=== PATIENT | female | born 1935 | race Caucasian/White ===

== ENCOUNTER 2016-09-09 09:38 | Emergency (ER) | payer OTHER ==
[~2016-09-09] VITALS: Wt 77.3 kg
[~2016-09-09 09:38] MED LIST: AMLO5TAB4 PO; CAPE500T11 PO; HYD25 PO; HYDR-902 PO; MECL12.574 PO; METO-448 PO; ONDA4TAB14 PO; SIMV20TA PO
[2016-09-09] MEDS ORDERED: IBUPROFEN 200 MG TAB PO ONE (11:00)
[2016-09-09] MEDS ORDERED: HYDROCODONE/APAP (5/325) TAB PO ONE (11:00)
--- NOTE | 2016-09-09 11:14 | RADRPT ---
PROCEDURE: US DVT. CLINICAL INDICATION: Left lower extremity pain. TECHNIQUE: Multiple longitudinal and transverse images of the left lower extremity veins were obta ined with edmonds scale and color Doppler imaging. 2D grayscale measurements with compression, color D oppler flow, and augmentation was performed. The calf veins were interrogated as well. COMPARISON: Previous lower extremity venous study from 06/09/2015. FINDINGS: The left common femoral, superficial femoral and popliteal veins are normally compressible throughou t. Color flow demonstrates normal filling of the vessel. Normal waveforms are visualized and there is normal response to augmentation. IMPRESSION: 1. No evidence of a deep vein thrombosis involving the left lower extremity. RPTAT: [facility] Physician Aydee Date Time Electronically viewed and signed by Physician Aydee on 09/09/2016 11:13 /
--- NOTE | 2016-09-09 12:03 | RADRPT ---
PROCEDURE: CT Abdomen and Pelvis without contrast. CLINICAL INDICATION: History of colon cancer with radiation therapy 1 year ago. Abdominal and pel phong pain. TECHNIQUE: CT scan of the abdomen and pelvis without contrast was performed. Coronal and sagittal reformatted images were obtained from the axial source images. Images were reviewed on a high-resolu indicoon PACS workstation. Total exam DLP is 1167.27 mGy-cm. CTDIvol is 20.68 mGy. One or more of the following dose reduction techniques were used: Automated exposure control, adjustment of the mA and/ or kV according to patient size, use of iterative reconstruction technique. COMPARISON: Contrast enhanced CT scan of the abdomen and pelvis dated 03/08/2015. FINDINGS: There are multiple benign calcified granulomas in the right middle lobe inferiorly and in the right lower lobe inferiorly. The lung bases are otherwise normal. There is no pleural effusion or perica rdial effusion. The heart size is normal. There is extensive coronary artery calcification. The liver is normal in size and attenuation. There is no focal hepatic lesion. The gallbladder and bile ducts are normal. The spleen is normal in size. There is no focal splenic lesion. Both adrenals are normal with no enlargement or mass. The pancreas is unremarkable with no mass or evidence of pancreatitis. There is no renal mass or hydronephrosis. There is no renal calculus or ureteral calculus. The abdominal aorta is not dilated. There is calcification in the aorta consistent with atheroscler osis. There is no retroperitoneal lymphadenopathy or mass. There is no pelvic lymphadenopathy or mass. The bladder and distal ureters are normal. The periappendiceal region is unremarkable with no evidence of appendicitis. There is diverticulosis throughout the colon. There is no evidence of diverticulitis. There is an umbilical hernia containing only omental fat. There is no herniated bowel. The bowel and mesentery are otherwise normal. There is no free fluid or free gas. There are degenerative changes of the spine. The osseous structures are otherwise unremarkable with no fracture or lytic lesion. IMPRESSION: 1. Multiple benign calcified granulomas in the right middle lobe and right lower lobe inferiorly. 2. Extensive coronary artery calcification. 3. Atherosclerosis. 4. Diverticulosis of the colon. No evidence of diverticulitis. 5. Umbilical hernia containing only omental fat. 6. Degenerative changes of the spine. 7. Otherwise unremarkable study. RPTAT: QQ .Jimmy Chaney MD, MD Date Time Electronically viewed and signed by .Jimmy Chaney MD, MD on 09/09/2016 12:03 .R/
[2016-09-09] MEDS ORDERED: DOCU-144 PO (12:11)
[2016-09-09] MEDS ORDERED: IBUP400T22 PO (12:11)
[2016-09-09] MEDS ORDERED: HYDR-906 PO (12:11)
--- NOTE | 2016-09-09 12:14 | ERD ---
ER Documentation Chief Complaint Date/Time DATE: 09/09/16 TIME: 12:12 Chief Complaint back pain rad down lle HPI This 80-year-old female presents with pain in her left buttocks radiating down to her left leg starting this week. She denies any history of trauma or inciting events. Pain is primarily in her left buttock radiating down the back of her leg. She has a history of DVT as well as rectal cancer. She denies any blood, constipation, fevers, vomiting, urinary complaints. She has a bowel bladder incontinence. She denies any back pain. ROS All systems reviewed and are negative except as per history of present illness. Medications Home Meds Active Scripts Ibuprofen* (Motrin*) 400 Mg Tab, 400 MG PO Q6, #14 TAB Prov:KHANH PENG MD 09/09/16 Docusate Sodium* (Colace*) 100 Mg Capsule, 100 MG PO BID, #30 CAP Prov:KHANH PENG MD 09/09/16 Hydrocodone/Acetaminophen ([place] 5-325 Tablet) 1 Each Tablet, 1 TAB PO Q6H Y for PAIN, #12 TAB Prov:KHANH PENG MD 09/09/16 Ondansetron (Ondansetron Odt) 4 Mg Tab.rapdis, 4 MG PO Q6H Y for NAUSEA AND/OR VOMITING, #30 TAB Prov:SREEDHAR CANCHOLA MD 04/06/16 Meclizine Hcl* (Antivert*) 12.5 Mg Tab, 12.5 MG PO Q6H Y for DIZZINESS, #20 TAB Prov:SREEDHAR CANCHOLA MD 04/06/16 Hydrocodone/Acetaminophen ([place] 10-325 Tablet) 1 Each Tablet, 1 TAB PO Q6H Y for PAIN, #7 TAB Prov:SREEDHAR CANCHOLA MD 04/06/16 Reported Medications Capecitabine* (Xeloda*) 500 Mg Tablet, 1000 MG PO BID, TBS 04/06/16 Hydrochlorothiazide* (Hydrochlorothiazide*) 25 Mg Tab, 25 MG PO DAILY, #30 TAB 01/22/16 Metoprolol Tartrate* (Lopressor*) 25 Mg Tab, 25 MG PO BID, #60 TAB 07/15/15 Simvastatin* (Zocor*) 20 Mg Tablet, 20 MG PO QHS, #30 TAB 06/04/15 Amlodipine Besylate* (Norvasc*) 5 Mg Tablet, 5 MG PO DAILY, TAB 06/04/15 Allergies Allergies: Coded Allergies: acetaminophen (Verified Allergy, Unknown, 04/06/16) codeine (Verified Allergy, Unknown, 04/06/16) PMhx/Soc History of Surgery: Yes (rt stent placement (angiogram)) Anesthesia Reaction: No Hx Neurological Disorder: No Hx Respiratory Disorders: No Hx Cardiac Disorders: No Hx Psychiatric Problems: No Hx Miscellaneous Medical Probl: Yes (COLON CA) Hx Alcohol Use: No Hx Substance Use: No Hx Tobacco Use: No Smoking Status: Never smoker Physical Exam Vitals Vital Signs Date Time Temp Pulse Resp B/P Pulse Ox O2 Delivery O2 Flow Rate FiO2 09/09/16 09:41 98.0 72 20 161/63 97 Physical Exam Const: [] Alert, [id number] per Head: Atraumatic Eyes: Normal Conjunctiva ENT: Normal External Ears, Nose and Mouth. Neck: Full range of motion..~ No meningismus. Resp: Clear to auscultation bilaterally Cardio: Regular rate and rhythm, no murmurs Abd: Soft, non tender, non distended. Normal bowel sounds Skin: No petechiae or rashes Back: No midline or flank tenderness Ext: No cyanosis, or edema there is some tenderness in the left ischial tuberosity. There is no significant calf swelling, restricted range of motion weakness. Neur: Awake and alert. Patient is ambulatory with discomfort without weakness or deficits. Psych: Normal Mood and Affect Results 24 hrs Current Medications Medications (Trade) Dose Ordered Sig/Stanislav Route PRN Reason Start Time Stop Time Status Last Admin Dose Admin Acetaminophen/ Hydrocodone Bitart ([place] (5/325)) 1 tab ONCE ONCE PO 09/09/16 11:00 09/09/16 11:01 DC 09/09/16 10:38 Ibuprofen (Motrin) 400 mg ONCE ONCE PO 09/09/16 11:00 09/09/16 11:01 DC 09/09/16 10:38 Procedures/MDM Patient was given [place] 5 mg by mouth and ibuprofen. Left lower extremity Dopplers negative for DVT. CT abdomen pelvis shows no acute abnormalities the location of the areas pain. Patient has pain in her left buttock likely initial bursitis. Patient shows no signs or symptoms of cauda equina syndrome, fracture, dislocation, neurologic deficit, bacterial infection. She will treated with a short course of [place] and ibuprofen and Colace at home instructed to follow-up with primary doctor this week, otherwise return to the ER for new or worsening symptoms. The patient was stable with no new complaints during the ER course. Clinically, there is no current evidence to suggest meningitis, sepsis, acute abdomen, pneumonia, acute coronary syndrome, pulmonary embolism, or any other emergent condition appearing to require further evaluation or hospitalization. The patient should certainly return for any new or worsening symptoms per the aftercare instructions. They should otherwise follow-up with her primary care doctor for reevaluation this week. Departure Diagnosis: Primary Impression: Sciatica Laterality: left Qualified Code: M54.32 - Sciatica of left side Condition: Stable Patient Instructions: Bursitis, Back Pain W/ Sciatica Additional Instructions: No abnormalities noted as cause of pain today. Likely bursitis or sciatica. Recheck with primary doctor or return for new or worsening symptoms. KHANH PENG MD Sep 09, 2016 12:14
== END 2016-09-09 12:28 | disposition home or self-care (01) ==
LOC: FTE 09:38
DX: M54.32 Sciatica, left side (principal); Z85.048 Personal history of other malignant neoplasm of rectum, rectosigmoid junction, and anus; Z98.61 Coronary angioplasty status
CPT/HCPCS: 74176; 93971; Z7502; Z7610